=== PATIENT | male | born 1930 | race Caucasian/White ===

== ENCOUNTER 2019-09-17 06:46 | Day surgery (SDC) | payer OTHER, SELFPAY ==
[2019-09-17] MEDS ORDERED: fentaNYL 100 MCG/2 ML SDV ONE (07:20)
[2019-09-17] MEDS ORDERED: Propofol 200 MG/20 ML SDV ONE (07:20)
[2019-09-17] MEDS ORDERED: Sodium Chloride 0.9% 1,000 ML IV SCH (07:45)
[2019-09-17 09:45] VITALS: BP 134/69; PULSE 60
--- NOTE | 2019-09-17 12:04 | OR ---
DATE OF PROCEDURE: 09/17/2019 SURGEON: Ata Alanis MD PROCEDURES: 1. Esophagogastroduodenoscopy with dilation. 2. Biopsies of GE junction. COMPLICATION: None. [employer]IT[employer] SCIENCE: None. BALLOON USED: 36-Welsh. FINDINGS: Narrowing of the GE junction to approximately 28-Welsh, subsequently upsized to 36-Welsh without any mass effect. RISKS: Risks, benefits, alternatives, and limitations including, but not limited to, infection, bleeding, and perforation were explained to the patient who wished to proceed. We also discussed high risk due to advanced age and cardiovascular and respiratory issues related to this procedure. PREOPERATIVE DIAGNOSIS: Dysphagia. POSTOPERATIVE DIAGNOSIS: Dysphagia. PROCEDURE IN DETAIL: The patient was placed in left lateral decubitus position. EGD scope was introduced and advanced atraumatically to the second part of the duodenum. There was no evidence of duodenitis. No ulceration within the stomach. No gastritis, except for very small part in immediate proximity to the GE junction. The GE junction did not show any mass effect. 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 The GE junction appeared to be about 28-Welsh in diameter. A 36-Welsh balloon was used to dilate this. No abnormalities noted after dilation. The mid esophagus was normal. The patient tolerated the procedure well. Ata Alanis MD /[id number]
== END 2019-09-17 09:53 | disposition home or self-care (01) ==
LOC: JP.SDS 06:46
PROVIDERS: ATTEND Surgery
DX: K22.2 Esophageal obstruction (principal); K20.9 Esophagitis, unspecified; I10 Essential (primary) hypertension; I25.10 Atherosclerotic heart disease of native coronary artery without angina pectoris
CPT/HCPCS: 43239; 43249; J2704; J3010; J7030; 88305; 88312